=== PATIENT | female | born 1985 | race Caucasian/White ===

== ENCOUNTER 2016-07-19 05:33 | Emergency (ER) | payer OTHER ==
[2016-07-19] MEDS ORDERED: ONDANSETRON 4 MG/2 ML VIAL IVP STA ×2 (05:48→08:32)
[2016-07-19] MEDS ORDERED: DICYCLOMINE 10 MG/ML 2 ML AMP IM STA (05:48)
[2016-07-19] MEDS ORDERED: SODIUM CHLORIDE 0.9% 1,000 ML IV STA ×3 (05:48→08:32)
[2016-07-19] MEDS ORDERED: FAMOTIDINE 20 MG/2 ML VIAL IV STA (05:49)
--- NOTE | 2016-07-19 05:51 | ED ---
General Adult HPI - General Source: patient, RN notes reviewed Mode of arrival: ambulatory Limitations: no limitations, language barrier <Mauricio Rosenberg - Last Filed: 07/19/16 05:49> <Raheem Haynes - Last Filed: 07/19/16 09:52> - General Chief complaint: Nausea/Vomiting/Diarrhea Stated complaint: Vomiting Time Seen by Provider: 07/19/16 05:43 - History of Present Illness Initial comments: Patient is a pleasant 30-year-old female presenting to the emergency department complaining of nausea vomiting diarrhea. Onset was around 11 or 12. Patient has vomited multiple times and diarrhea multiple times. Patient has cramping of her abdomen. Patient has chills however is unclear whether or not she has a fever. Patient denies possible and states she is breast-feeding. Patient warned of medication be provided to her with breast-feeding. No history of chronic abdominal problems. Symptoms are persistent. (Mauricio Rosenberg) - Related Data Home Medications Medication Instructions Recorded Confirmed No Known Home Medications [No 07/19/16 07/19/16 Known Home Medications] Allergies Allergy/AdvReac Type Severity Reaction Status Date / Time No Known Allergies Allergy Verified 07/19/16 07:48 Review of Systems ROS Other: All systems not noted in ROS Statement are negative. Constitutional: Reports: chills Eyes: Denies: eye pain ENT: Denies: ear pain Respiratory: Denies: cough Cardiovascular: Denies: chest pain Endocrine: Denies: fatigue Gastrointestinal: Reports: abdominal pain, nausea, vomiting, diarrhea Genitourinary: Denies: dysuria Musculoskeletal: Denies: back pain Skin: Denies: rash Neurological: Denies: weakness <Mauricio Rosenberg - Last Filed: 07/19/16 05:49> ROS Other: All systems not noted in ROS Statement are negative. <Raheem Haynes - Last Filed: 07/19/16 09:52> ROS Statement: Those systems with pertinent positive or pertinent negative responses have been documented in the HPI. Past Medical History Past Medical History: No Reported History Additional Past Medical History / Comment(s): History of polycystic ovarian disease History of Any Multi-Drug Resistant Organisms: None Reported Past Surgical History: Section Past Anesthesia/Blood Transfusion Reactions: No Reported Reaction Past Psychological History: Depression Additional Psychological History / Comment(s): father october 2015 Smoking Status: Never smoker Past Alcohol Use History: None Reported Past Drug Use History: None Reported - Past Family History Father Family Medical History: Cancer, Diabetes Mellitus, Hypertension Mother Family Medical History: Diabetes Mellitus <Mauricio Rosenberg - Last Filed: 07/19/16 05:49> General Exam Limitations: no limitations, language barrier General appearance: alert, in no apparent distress Head exam: Present: atraumatic Eye exam: Present: normal appearance, PERRL ENT exam: Present: normal oropharynx Neck exam: Present: normal inspection Respiratory exam: Present: normal lung sounds bilaterally Cardiovascular Exam: Present: regular rate, normal rhythm GI/Abdominal exam: Present: soft, tenderness (Mild diffuse tenderness), normal bowel sounds. Absent: distended, guarding, rebound, rigid Extremities exam: Present: normal inspection Neurological exam: Present: alert Psychiatric exam: Present: normal affect, normal mood Skin exam: Absent: rash <Mauricio Rosenberg - Last Filed: 07/19/16 05:49> Course <Mauricio Rosenberg - Last Filed: 07/19/16 05:49> <Raheem Haynes - Last Filed: 07/19/16 09:52> Vital Signs 07/19/16 07/19/16 07/19/16 05:34 07:08 08:32 Temperature 98.5 F Pulse Rate 77 98 88 Respiratory 20 20 18 Rate Blood Pressure 97/66 95/58 94/53 O2 Sat by Pulse 97 98 100 Oximetry - Reevaluation(s) Reevaluation #1: 07/19/16 09:50 Patient was reevaluated several occasions patient is feeling much improved this time will be discharged home the presentation is consistent with gastroenteritis and dehydration. (Raheem Haynes) Medical Decision Making - Lab Data Result diagrams: 07/19/16 06:42 07/19/16 06:42 <Raheem Haynes - Last Filed: 07/19/16 09:52> - Lab Data Lab Results 07/19/16 07/19/16 07/19/16 Range/Units 06:42 06:42 08:25 WBC 11.4 H (3.8-10.6) k/uL RBC 4.89 (3.80-5.40) m/uL Hgb 14.6 (11.4-16.0) gm/dL Hct 44.9 (34.0-46.0) % MCV 91.9 (80.0-100.0) fL MCH 29.9 (25.0-35.0) pg MCHC 32.5 (31.0-37.0) g/dL RDW 12.1 (11.5-15.5) % Plt Count 231 (150-450) k/uL Neutrophils % 93 % Lymphocytes % 2 % Monocytes % 4 % Eosinophils % 1 % Basophils % 0 % Neutrophils # 10.7 H (1.3-7.7) k/uL Lymphocytes # 0.2 L (1.0-4.8) k/uL Monocytes # 0.4 (0-1.0) k/uL Eosinophils # 0.1 (0-0.7) k/uL Basophils # 0.0 (0-0.2) k/uL Sodium 145 (137-145) mmol/L Potassium 4.6 (3.5-5.1) mmol/L Chloride 105 (98-107) mmol/L Carbon Dioxide 24 (22-30) mmol/L Anion Gap 16 mmol/L BUN 22 H (7-17) mg/dL Creatinine 1.14 H (0.52-1.04) mg/dL Est GFR (MDRD) Af Amer >60 (>60 ml/min/1.73 sqM) Est GFR (MDRD) Non-Af 56 (>60 ml/min/1.73 sqM) Glucose 118 H (74-99) mg/dL Calcium 9.6 (8.4-10.2) mg/dL Total Bilirubin 0.9 (0.2-1.3) mg/dL AST 29 (14-36) U/L ALT 46 (9-52) U/L Alkaline Phosphatase 71 (38-126) U/L Total Protein 8.0 (6.3-8.2) g/dL Albumin 4.7 (3.5-5.0) g/dL Amylase <30 L (30-110) U/L Lipase 29 (23-300) U/L HCG, Qual Not Detected Urine Color Yellow Urine Appearance Cloudy H (Clear) Urine pH 5.5 (5.0-8.0) Ur Specific [place] 1.027 (1.001-1.035) Urine Protein 1+ H (Negative) Urine Glucose (UA) Negative (Negative) Urine Ketones Trace H (Negative) Urine Blood Small H (Negative) Urine Nitrate Negative (Negative) Urine Bilirubin Negative (Negative) Urine Urobilinogen <2.0 (<2.0) mg/dL Ur Leukocyte Esterase Small H (Negative) Urine RBC 6 H (0-5) /hpf Urine WBC 4 (0-5) /hpf Ur Squamous Epith Cells 8 H (0-4) /hpf Urine Bacteria Rare H (None) /hpf Hyaline Casts 20 H (0-2) /lpf Urine Mucus Moderate H (None) /hpf Disposition <Mauricio Rosenberg - Last Filed: 07/19/16 05:49> <Raheem Haynes - Last Filed: 07/19/16 09:52> Clinical Impression: Dehydration, Gastroenteritis Disposition: HOME SELF-CARE Condition: Good Instructions: Acute Nausea and Vomiting (ED), Acute Diarrhea (ED), Dehydration (ED) Additional Instructions: Drink plenty of liquids, Tylenol for pain
[2016-07-19 06:59] LABS: Basophils % (A) 0 %; CH 31.1; CHCM 33.9; Eosinophils # (A) 0.1 k/uL (0-0.7); Eosinophils % (A) 1 %; HCT 44.9 % (34.0-46.0); HDW 2.79; HGB 14.6 gm/dL (11.4-16.0); Luc # (Auto) 0.03; Luc % (Auto) 0; Lymphocytes # (A) 0.2 k/uL (1.0-4.8); Lymphocytes % (A) 2 %; MCH 29.9 pg (25.0-35.0); MCHC 32.5 g/dL (31.0-37.0); MCV 91.9 fL (80.0-100.0); Mean Platelet Volume 6.9; Monocytes # (A) 0.4 k/uL (0-1.0); Monocytes % (A) 4 %; Neutrophils # (A) 10.7 k/uL (1.3-7.7); Neutrophils % (A) 93 %; RBC 4.89 m/uL (3.80-5.40); RDW 12.1 % (11.5-15.5); WBC 11.4 k/uL (3.8-10.6); WBC (Perox) 11.88
[2016-07-19 07:13] LABS: HCG,Qualitative Serum Not Detected
[2016-07-19 07:16] LABS: ALT 46 U/L (9-52); AST 29 U/L (14-36); Alkaline Phosphatase 71 U/L (38-126); Amylase <30 U/L (30-110); Anion Gap 16 mmol/L; Blood Urea Nitrogen 22 mg/dL (7-17); Calcium 9.6 mg/dL (8.4-10.2); Carbon Dioxide 24 mmol/L (22-30); Chloride 105 mmol/L (98-107); Glucose 118 mg/dL (74-99); Non-African American GFR(MDRD) 56 (>60 ml/min/1.73 sqM); Potassium 4.6 mmol/L (3.5-5.1); Sodium 145 mmol/L (137-145); Total Bilirubin 0.9 mg/dL (0.2-1.3)
--- NOTE | 2016-07-19 07:23 | XR ---
EXAMINATION TYPE: XR KUB DATE OF EXAM: 07/19/2016 6:21 AM COMPARISON: NONE HISTORY: Pain TECHNIQUE: Single supine KUB image of the abdomen is obtained FINDINGS: Small bowel demonstrates no evidence for dilatation or air fluid levels. Gas and fecal material is seen in non-distended colon. No convincing evidence for pneumoperitoneum. No unusual calcifications. The lung bases are clear. The osseous structures are intact. IMPRESSION: 1. Overall nonobstructive bowel gas pattern.
[2016-07-19 08:34] VITALS: RESP 18
[2016-07-19 08:45] LABS: Appearance,Urine Cloudy (Clear); Bacteria,Urine Rare /hpf; Bilirubin,Urine Negative (Negative); Glucose,Urine (UA) Negative (Negative); Ketones,Urine Trace (Negative); Leukocyte Esterase,Urine Small (Negative); Mucus,Urine Moderate /hpf; Nitrite,Urine Negative (Negative); PH, Urine 5.5 (5.0-8.0); Particle Count 20488; Protein,Urine 1+ (Negative); RBC,Urine 6 /hpf (0-5); Specific Gravity,Urine 1.027 (1.001-1.035); Squamous Epithelial Cell,Urine 8 /hpf (0-4); UA Billing (MACRO vs. MICRO) MICRO; Urobilinogen,Urine <2.0 mg/dL (<2.0); WBC,Urine 4 /hpf (0-5)
[2016-07-19] MEDS ORDERED: ACETAMINOPHEN IV (For NPO) 1,000 MG in SALINE 1 100ML.BAG IVPB STA (09:01)
[2016-07-19 10:13] VITALS: BP 108/67; PULSE 90; TEMP 98.9
== END 2016-07-19 10:13 | disposition home or self-care (01) ==
LOC: EC 05:33
DX: K52.9 Noninfective gastroenteritis and colitis, unspecified (principal); E86.0 Dehydration
CPT/HCPCS: 36415; 80053; 82150; 83690; 85025; 81001; 84703; 74000; 99284; 96374; 96375 ×2; 96376; 96361 ×4; 96372; J0500; J2405; J0131

== ENCOUNTER 2019-04-24 14:35 | Outpatient (CLI) | payer OTHER ==
[2019-04-24 15:10] LABS: Appearance,Urine Cloudy (Clear); Bacteria,Urine Rare /hpf; Bilirubin,Urine Negative (Negative); Blood,Urine Negative (Negative); Color,Urine Light Yellow; Glucose,Urine (UA) Negative (Negative); Ketones,Urine Negative (Negative); Leukocyte Esterase,Urine Small (Negative); Nitrite,Urine Negative (Negative); Protein,Urine Negative (Negative); RBC,Urine 3 /hpf (0-5); Specific Gravity,Urine 1.003 (1.001-1.035); Squamous Epithelial Cell,Urine 4 /hpf (0-4); Urobilinogen,Urine <2.0 mg/dL (<2.0); WBC,Urine 5 /hpf (0-5)
[2019-04-24 16:42] VITALS: BP 112/70; RESP 16; TEMP 98.1
--- NOTE | 2019-04-24 19:29 | P.MSEPDOC ---
Presenting Problems - Arrival Data Date of Arrival on Unit: 04/24/19 Time of Arrival on Unit: 14:35 Mode of Transport: Ambulatory - Complaint OB-Reason for Admission/Chief Complaint: Other Medical History - Information : 4 Para: 2 Term: 1 : 1 Abortions: Spontaneous or Elective: 1 Number of Living Children: 2 - Gestational Age Gestational Age by SPARKLE (wks/days): 29 Weeks and 4 Days - History Complications: Prior Review of Systems - Review of Systems Constitutional: No problems Breast: No problems ENT: No problems Cardiovascular: No problems Respiratory: No problems Gastrointestinal: No problems Genitourinary: No problems Musculoskeletal: No problems Neurological: No problems Skin: No problems Vital Signs - Temperature Temperature: 98.1 F Temperature Source: Oral - Respirations Respiratory Rate: 16 Oxygen Delivery Method: Room Air - Blood Pressure Right Arm Supine Blood Pressure: 112/70 Blood Pressure Mean: 84 Blood Pressure Source: Automatic Cuff Medical Screen Scoring (Pre) - Cervical Exam Dilation: 1-3 cm = 1 Membranes: Intact - Uterine Contractions Frequency: N/A Duration: N/A Intensity: N/A - Maternal Vital Signs Maternal Temperature: N/A Maternal Blood Pressure: N/A Signs of Preeclampsia: N/A Maternal Respirations: N/A - Maternal Trauma Maternal Trauma: N/A - Assessment - Baby A Heart Rate - NICHD Category: Category I (Normal) = 0 NST: Reactive Position: N/A Station: N/A - Total Score - Baby A Total Score - Baby A: 1 - Total Score - Baby B Total Score - Baby B: 1 - Total Score - Baby C Total Score - Baby C: 1 - Level of Risk - Baby A Level of Risk - Baby A: Low (0-5) - Level of Risk - Baby B Level of Risk - Baby B: Low (0-5) - Level of Risk - Baby C Level of Risk - Baby C: Low (0-5) Physician Notification (Pre) - Physician Notified Physician Notified Date: 04/24/19 Physician Notified Time: 16:10 New Order Received: Yes Disposition - Disposition OB Disposition: Discharge to home Discharge Date: 04/24/19 Discharge Time: 16:13 I agree with the RN Medical Screening Exam: Yes Risk & Benefit of care provided described in d/c instruction: Yes Diagnosis: FALSE LABOR BEFORE 37 COMPLETED WEEKS OF GEST, THIRD TRI
== END 2019-04-24 16:13 | disposition home or self-care (01) ==
LOC: FBPOP 14:35
PROVIDERS: ATTEND Obstetrics & Gynecology
DX: O47.03 False labor before 37 completed weeks of gestation, third trimester (principal); Z3A.29 29 weeks gestation of pregnancy
CPT/HCPCS: 59025; 82731; 81001; G0463; 99213

== ENCOUNTER 2019-05-13 11:05 | Outpatient (CLI) | payer OTHER ==
[2019-05-13] MEDS ORDERED: BETAMET ACET-BETAMETH SOD PHOS 6 MG/ML VIAL IM SCH (11:15)
[2019-05-13] MEDS ORDERED: INFLUENZA VACCINE (6 MOS+) 60 MCG/0.5 ML SYRINGE IM ONE (11:18)
== END 2019-05-13 11:52 | disposition home or self-care (01) ==
LOC: FBPOP 11:05
PROVIDERS: ATTEND Obstetrics & Gynecology
DX: O60.03 Preterm labor without delivery, third trimester (principal); Z3A.33 33 weeks gestation of pregnancy
CPT/HCPCS: 59025; 96372; 90686; G0463; G0008; J0702; 99214

== ENCOUNTER 2019-05-14 11:22 | Outpatient (CLI) | payer OTHER ==
[2019-05-14] MEDS ORDERED: BETAMET ACET-BETAMETH SOD PHOS 6 MG/ML VIAL IM SCH (11:45)
== END 2019-05-14 12:00 | disposition home or self-care (01) ==
LOC: FBPOP 11:22
PROVIDERS: ATTEND Obstetrics & Gynecology
DX: O60.03 Preterm labor without delivery, third trimester (principal); Z3A.32 32 weeks gestation of pregnancy
CPT/HCPCS: 59025; 96372; G0463; J0702; 99213

== ENCOUNTER 2019-05-23 19:25 | Outpatient (CLI) | payer OTHER ==
[2019-05-23 20:28] VITALS: BP 114/73; PULSE 111; RESP 18; TEMP 98.1
--- NOTE | 2019-05-27 13:15 | P.MSEPDOC ---
Presenting Problems - Arrival Data Date of Arrival on Unit: 05/23/19 Time of Arrival on Unit: 19:25 Mode of Transport: Ambulatory - Complaint OB-Reason for Admission/Chief Complaint: Possible Onset of Labor, Pain Medical History - Information : 4 Para: 2 Term: 1 : 1 Abortions: Spontaneous or Elective: 1 Number of Living Children: 2 - Gestational Age Gestational Age by SPARKLE (wks/days): 33 Weeks and 5 Days Review of Systems - Review of Systems Constitutional: No problems Breast: No problems ENT: No problems Cardiovascular: No problems Respiratory: No problems Gastrointestinal: No problems Genitourinary: No problems Musculoskeletal: No problems Neurological: No problems Skin: No problems Vital Signs - Temperature Temperature: 98.1 F Temperature Source: Temporal Artery Scan - Pulse Right Pulse Rate: 111 Pulse Assessment Method: Pulse Oximetry - Respirations Respiratory Rate: 18 Oxygen Delivery Method: Room Air O2 Sat by Pulse Oximetry: 97 - Blood Pressure Right Arm Blood Pressure: 114/73 Blood Pressure Mean: 86 Blood Pressure Source: Automatic Cuff Medical Screen Scoring (Pre) - Cervical Exam Dilation: 1-3 cm = 1 Effacement: Exam Deferred Membranes: Intact - Uterine Contractions Frequency: N/A Duration: N/A Intensity: N/A - Maternal Vital Signs Maternal Temperature: N/A Maternal Blood Pressure: N/A Signs of Preeclampsia: N/A Maternal Respirations: N/A - Maternal Trauma Maternal Trauma: N/A - Assessment - Baby A Baseline FHR: 150 Heart Rate - NICHD Category: Category I (Normal) = 0 NST: Reactive Position: N/A Station: N/A - Total Score - Baby A Total Score - Baby A: 1 - Total Score - Baby B Total Score - Baby B: 1 - Total Score - Baby C Total Score - Baby C: 1 - Level of Risk - Baby A Level of Risk - Baby A: Low (0-5) - Level of Risk - Baby B Level of Risk - Baby B: Low (0-5) - Level of Risk - Baby C Level of Risk - Baby C: Low (0-5) Physician Notification (Pre) - Physician Notified Physician Notified Date: 05/23/19 Physician Notified Time: 20:21 New Order Received: Yes (D/C home with follow up instructions.) Medical Screen Scoring (Post) - Cervical Exam Dilation: 1-3 cm = 1 Effacement: Exam Deferred Membranes: Intact - Uterine Contractions Frequency: N/A Duration: N/A Intensity: N/A - Maternal Vital Signs Maternal Temperature: N/A Maternal Blood Pressure: N/A Signs of Preeclampsia: N/A Maternal Respirations: N/A - Pain Assessment Pain Location and Character: Pelvic Pain Scale Used: Numeric (1 - 10) Pain Intensity: 3 Pain Management Goal: 0 Pain Description: *Acute, Pressure Pain Radiation Location: none Pain Frequency: Frequent Pain Duration Units: Hours Pain Behavior: Vocalization Pain Aggravating Factors: Activity Non-Pharmacological Interventions: Inactivity, Relaxation Technique - Maternal Trauma Maternal Trauma: N/A - Assessment - Baby A Heart Rate: 150 Heart Rate - NICHD Category: Category I (Normal) = 0 NST: Reactive Position: N/A Station: N/A - Total Score Total Score - Baby A: 1 Total Score - Baby B: 1 Total Score - Baby C: 1 - Post Treatment Level of Risk Post Treatment Level of Risk - Baby A: Low (0-5) Post Treatment Level of Risk - Baby B: Low (0-5) Post Treatment Level of Risk - Baby C: Low (0-5) Physician Notification (Post) - Physician Notified Physician Notified Date: 05/23/19 Physician Notified Time: 20:21 Physician/Practitioner Notified:: Katerina Spoke With: Katerina New Order Received: Yes (D/C home with follow up instructions.) Disposition - Disposition OB Disposition: Discharge to home Discharge Date: 05/23/19 Discharge Time: 20:21 I agree with the RN Medical Screening Exam: Yes Risk & Benefit of care provided described in d/c instruction: Yes Diagnosis: FALSE LABOR BEFORE 37 COMPLETED WEEKS OF GEST, THIRD TRI
== END 2019-05-23 20:29 | disposition home or self-care (01) ==
LOC: FBPOP 19:25
PROVIDERS: ATTEND Obstetrics & Gynecology
DX: O47.03 False labor before 37 completed weeks of gestation, third trimester (principal); Z3A.33 33 weeks gestation of pregnancy
CPT/HCPCS: 59025; G0463; 99213

== ENCOUNTER 2019-06-04 21:50 | Outpatient (CLI) | payer OTHER ==
[2019-06-04 23:19] VITALS: BP 113/70; PULSE 107; RESP 16; TEMP 98
--- NOTE | 2019-06-05 07:10 | P.MSEPDOC ---
Presenting Problems - Arrival Data Date of Arrival on Unit: 06/04/19 Time of Arrival on Unit: 22:50 Mode of Transport: Ambulatory - Complaint OB-Reason for Admission/Chief Complaint: Pain Medical History - Information : 4 Para: 2 Term: 1 : 1 Abortions: Spontaneous or Elective: 1 Number of Living Children: 2 - Gestational Age Gestational Age by SPARKLE (wks/days): 35 Weeks and 3 Days - History Complications: Prior Comment: 35 week delivery Review of Systems - Review of Systems Constitutional: No problems Breast: No problems ENT: No problems Cardiovascular: No problems Respiratory: No problems Gastrointestinal: No problems Genitourinary: No problems Musculoskeletal: No problems Neurological: No problems Skin: No problems Vital Signs - Temperature Temperature: 98 F Temperature Source: Tympanic - Pulse Right Brachial Pulse Rate: 107 Pulse Assessment Method: Automatic Cuff - Respirations Respiratory Rate: 16 Oxygen Delivery Method: Room Air O2 Sat by Pulse Oximetry: 96 - Blood Pressure Right Arm Blood Pressure: 113/70 Blood Pressure Mean: 84 Blood Pressure Source: Automatic Cuff Medical Screen Scoring (Pre) - Cervical Exam Dilation: 4-7 cm = 2 Effacement: More than 50% = 2 Membranes: Intact - Uterine Contractions Frequency: > 5 minutes apart = 1 Duration: > 40 seconds = 2 Intensity: N/A - Maternal Vital Signs Maternal Temperature: N/A Maternal Blood Pressure: N/A Signs of Preeclampsia: N/A Maternal Respirations: N/A - Maternal Trauma Maternal Trauma: N/A - Assessment - Baby A Baseline FHR: 145 Heart Rate - NICHD Category: Category I (Normal) = 0 NST: Reactive Position: N/A Station: N/A - Total Score - Baby A Total Score - Baby A: 7 - Total Score - Baby B Total Score - Baby B: 7 - Total Score - Baby C Total Score - Baby C: 7 - Level of Risk - Baby A Level of Risk - Baby A: Medium (6-9) - Level of Risk - Baby B Level of Risk - Baby B: Medium (6-9) - Level of Risk - Baby C Level of Risk - Baby C: Medium (6-9) Physician Notification (Pre) - Physician Notified Physician Notified Date: 06/04/19 Physician Notified Time: 23:08 - Notification Comment Comment: Reported no cervical change after one hour, pt 4/70/-2 same as her appointment Monday, had steroids, follow up scheduled 06/10/19. Disposition - Disposition OB Disposition: Discharge to home, Written follow up instructions reviewed Discharge Date: 06/04/19 Discharge Time: 23:10 I agree with the RN Medical Screening Exam: Yes Risk & Benefit of care provided described in d/c instruction: Yes Diagnosis: FALSE LABOR BEFORE 37 COMPLETED WEEKS OF GEST, THIRD TRI
== END 2019-06-04 23:10 | disposition home or self-care (01) ==
LOC: FBPOP 21:50
PROVIDERS: ATTEND Obstetrics & Gynecology
DX: O47.03 False labor before 37 completed weeks of gestation, third trimester (principal); Z3A.35 35 weeks gestation of pregnancy
CPT/HCPCS: 59025; G0463; 99213

== ENCOUNTER 2019-06-07 20:24 | Outpatient (CLI) | payer OTHER ==
[2019-06-07 22:27] VITALS: BP 118/69; PULSE 95; RESP 18; TEMP 99
--- NOTE | 2019-06-07 23:18 | P.MSEPDOC ---
Presenting Problems - Arrival Data Date of Arrival on Unit: 06/07/19 Time of Arrival on Unit: 20:35 Mode of Transport: Ambulatory - Complaint OB-Reason for Admission/Chief Complaint: Possible Onset of Labor Medical History - Information : 4 Para: 2 Term: 1 : 1 Abortions: Spontaneous or Elective: 1 Number of Living Children: 2 - Gestational Age Gestational Age by SPARKLE (wks/days): 35 Weeks and 6 Days Review of Systems - Review of Systems Constitutional: No problems Breast: No problems ENT: No problems Cardiovascular: No problems Respiratory: No problems Gastrointestinal: No problems Genitourinary: No problems Musculoskeletal: No problems Neurological: No problems Skin: No problems Vital Signs - Temperature Temperature: 99.0 F Temperature Source: Temporal Artery Scan - Pulse Right Pulse Rate: 95 Pulse Assessment Method: Automatic Cuff - Respirations Respiratory Rate: 18 Oxygen Delivery Method: Room Air - Blood Pressure Right Arm Blood Pressure: 118/69 Blood Pressure Mean: 85 Blood Pressure Source: Automatic Cuff Medical Screen Scoring (Pre) - Cervical Exam Dilation: 4-7 cm = 2 Effacement: Exam Deferred Membranes: Intact - Uterine Contractions Frequency: > 5 minutes apart = 1 Duration: N/A Intensity: N/A - Maternal Vital Signs Maternal Temperature: N/A Maternal Blood Pressure: N/A Signs of Preeclampsia: N/A Maternal Respirations: N/A - Maternal Trauma Maternal Trauma: N/A - Assessment - Baby A Baseline FHR: 145 Heart Rate - NICHD Category: Category I (Normal) = 0 NST: Reactive Position: N/A Station: N/A - Total Score - Baby A Total Score - Baby A: 3 - Total Score - Baby B Total Score - Baby B: 3 - Total Score - Baby C Total Score - Baby C: 3 - Level of Risk - Baby A Level of Risk - Baby A: Low (0-5) - Level of Risk - Baby B Level of Risk - Baby B: Low (0-5) - Level of Risk - Baby C Level of Risk - Baby C: Low (0-5) Physician Notification (Pre) - Physician Notified Physician Notified Date: 06/07/19 Physician Notified Time: 20:50 New Order Received: Yes (If no cervical change, discharge home with follow up instructions.) Medical Screen Scoring (Post) - Cervical Exam Dilation: 4-7 cm = 2 Effacement: Exam Deferred Membranes: Intact - Uterine Contractions Frequency: > 5 minutes apart = 1 Duration: N/A Intensity: N/A - Maternal Vital Signs Maternal Temperature: N/A Signs of Preeclampsia: N/A, Headache = 1 Maternal Respirations: N/A - Pain Assessment Pain Location and Character: Abdomen Pain Scale Used: Numeric (1 - 10) Pain Intensity: 4 Pain Management Goal: 0 Pain Description: *Acute, Cramping Pain Frequency: Occasional Pain Behavior: Vocalization - Maternal Trauma Maternal Trauma: N/A - Assessment - Baby A Heart Rate: 145 Heart Rate - NICHD Category: Category I (Normal) = 0 NST: Reactive Position: N/A Station: N/A - Total Score Total Score - Baby A: 4 Total Score - Baby B: 4 Total Score - Baby C: 4 - Post Treatment Level of Risk Post Treatment Level of Risk - Baby A: Low (0-5) Post Treatment Level of Risk - Baby B: Low (0-5) Post Treatment Level of Risk - Baby C: Low (0-5) Physician Notification (Post) - Physician Notified Physician Notified Date: 06/07/19 Physician Notified Time: 20:50 Physician/Practitioner Notified:: Isha Spoke With: Isha Kaiser Order Received: Yes (discharge with follow up instructions.) Disposition - Disposition OB Disposition: Discharge to home Discharge Date: 06/07/19 Discharge Time: 21:55 I agree with the RN Medical Screening Exam: Yes Risk & Benefit of care provided described in d/c instruction: Yes Diagnosis: FALSE LABOR BEFORE 37 COMPLETED WEEKS OF GEST, THIRD TRI
== END 2019-06-07 21:55 | disposition home or self-care (01) ==
LOC: FBPOP 20:24
PROVIDERS: ATTEND Obstetrics & Gynecology
DX: O47.03 False labor before 37 completed weeks of gestation, third trimester (principal); Z3A.35 35 weeks gestation of pregnancy
CPT/HCPCS: 59025; G0463; 99213

== ENCOUNTER 2019-06-15 09:20 | Inpatient (IN) | payer OTHER ==
[2019-06-15] MEDS ORDERED: CARBOPROST TROMETHAMINE 250 MCG/ML 1 ML AMP IM PRN (10:51)
[2019-06-15] MEDS ORDERED: LIDOCAINE 0.5% (PF) 5 MG/ML (50 ML SDV) SQ PRN (10:51)
[2019-06-15] MEDS ORDERED: METHYLERGONOVINE 0.2 MG/ML 1 ML AMP IM PRN (10:51)
[2019-06-15] MEDS ORDERED: TERBUTALINE 1 MG/ML VIAL SQ PRN (10:51)
[2019-06-15] MEDS ORDERED: OXYTOCIN 10 UNIT/ML 1 ML VIAL IM PRN (10:51)
[2019-06-15] MEDS: LACTATED RINGERS 1,000 ML IV SCH ×2 (11:17→15:43)
[2019-06-15 11:42] LABS: Basophils # (A) 0.1 k/uL (0-0.2); Basophils % (A) 1 %; Eosinophils # (A) 0.2 k/uL (0-0.7); Eosinophils % (A) 3 %; HCT 34.3 % (34.0-46.0); HGB 11.6 gm/dL (11.4-16.0); Lymphocytes # (A) 1.1 k/uL (1.0-4.8); Lymphocytes % (A) 15 %; MCH 31.7 pg (25.0-35.0); MCHC 33.7 g/dL (31.0-37.0); MCV 94.2 fL (80.0-100.0); Mean Platelet Volume 8.2; Monocytes # (A) 0.4 k/uL (0-1.0); Monocytes % (A) 6 %; Neutrophils # (A) 5.6 k/uL (1.3-7.7); Neutrophils % (A) 74 %; Platelet Count 180 k/uL (150-450); RBC 3.64 m/uL (3.80-5.40); RDW 13.9 % (11.5-15.5); WBC 7.5 k/uL (3.8-10.6)
[2019-06-15] MEDS ORDERED: fentaNYL (PF) 50 MCG/ML 5 ML AMP ONE (15:05)
[2019-06-15] MEDS ORDERED: ROPIVACAINE 5MG/ML 20ML VIAL ONE (15:05)
[2019-06-15] MEDS ORDERED: SODIUM CHLORIDE 0.9% 100 ML BAG ONE (15:05)
[2019-06-15] MEDS ORDERED: ROPIVACAINE 100 MG, fentaNYL (PF) 200 MCG in SODIUM CHLORIDE 0.9% 76 ML EPIDURAL ONE (15:46)
[2019-06-15] MEDS ORDERED: diphenhydrAMINE 50 MG/ML 1 ML VIAL IVP PRN ×2 (18:26)
[2019-06-15] MEDS ORDERED: HYDROCORTISONE 2.5% RECTAL CREAM 30 GM TUBE RECTAL PRN (18:26)
[2019-06-15] MEDS ORDERED: WITCH HAZEL 1 EACH MED..PAD TOPICAL PRN (18:26)
[2019-06-15] MEDS ORDERED: ACETAMINOPHEN TAB 325 MG TAB PO PRN (18:26)
[2019-06-15] MEDS ORDERED: HYDROcodone/APAP 7.5-325MG 1 EACH TAB PO PRN (18:26)
[2019-06-15] MEDS ORDERED: BENZOCAINE/MENTHOL SPRAY 1 GM/SPRAY AEROSOL TOPICAL PRN (18:26)
[2019-06-15] MEDS ORDERED: diphenhydrAMINE 50 MG CAP PO PRN (18:26)
[2019-06-15] MEDS ORDERED: SIMETHICONE 80 MG CHEWABLE PO PRN (18:26)
[2019-06-15] MEDS ORDERED: diphenhydrAMINE 25 MG CAP PO PRN (18:26)
[2019-06-15] MEDS ORDERED: ZOLPIDEM 5 MG TAB PO PRN (18:26)
[2019-06-15] MEDS ORDERED: LANOLIN CREAM 5 GM TUBE TOPICAL PRN (18:26)
[2019-06-15] MEDS ORDERED: IBUPROFEN 600 MG TAB PO PRN (18:26)
[2019-06-15] MEDS ORDERED: OXYTOCIN 20 UNITS/1000 ML NS 1,000 ML IV SCH (18:30)
--- NOTE | 2019-06-15 18:30 | P.HPOB ---
History of Present Illness H&P Date: 06/15/19 Chief Complaint: Intrauterine term: Advanced dilatation Patient is a 33-year-old with 1 prior section and a prior successful . She called this morning and explained that she was unable to walk and she was having significant severe pain in her pelvis and due to her prior exam per her of her being dilated to 5 cm she was sent to [facility] for full evaluation. In labor and delivery was are 5 that she had cervical dilatation of 5 cm to 5-1/2 cm with irregular contractions. However during the observational period she had several variable decelerations that were somewhat concerning due to the fact that she was not ignacio having other signs or symptoms of labor and with her history of prior vaginal after section a decision to move forward with labor was made. Artificial rupture membranes was performed and clear fluid was noted. She did also have some polyhydramnios [place] on the amount of fluid that came out. Her course otherwise had been generally unremarkable and was feeling well other than her advanced dilatation. She had a similar episode with her last and delivered that baby at 35 weeks. She denies any other questions or concerns and a category 1 tracing is noted. We'll plan Pitocin augmentation of labor and she plans she is noted epidural for analgesia. Past Medical History Past Medical History: No Reported History Additional Past Medical History / Comment(s): History of polycystic ovarian disease History of Any Multi-Drug Resistant Organisms: None Reported Past Surgical History: Section Past Anesthesia/Blood Transfusion Reactions: No Reported Reaction Past Psychological History: Depression Additional Psychological History / Comment(s): father october 2015 Smoking Status: Never smoker Past Alcohol Use History: None Reported Past Drug Use History: None Reported - Past Family History Father Family Medical History: Cancer, Diabetes Mellitus, Hypertension Mother Family Medical History: Diabetes Mellitus Medications and Allergies Home Medications Medication Instructions Recorded Confirmed Type Pnv,Calcium 72/Iron/Folic Acid 1 each PO DAILY 04/24/19 06/15/19 History [ Plus Tablet] Allergies Allergy/AdvReac Type Severity Reaction Status Date / Time No Known Allergies Allergy Verified 06/15/19 09:41 Exam Osteopathic Statement: *. No significant issues noted on an osteopathic structural exam other than those noted in the History and Physical/Consult. Vital Signs Temp Pulse Resp BP Pulse Ox 06/15/19 09:34 98.1 F 108 H 17 126/74 96 06/15/19 09:24 98.1 F 108 H 17 126/74 97 Intake and Output 06/15/19 06/15/19 06/15/19 06:59 14:59 22:59 Other: # Voids 1 Weight 107.048 kg - OBG Physical Exam Breast: both: normal (no masses) Abdomen: bowel sounds normal, no diffuse tenderness, no bruit present, no guarding noted, no hepatomegaly, no splenomegaly, no mass Vulva: both: normal Vagina: normal moisture, no discharge Cervix: no lesion, no discharge Uterus: normal size, normal contour Adnexa: both: normal Anus/Rectum: normal perianal skin, no rectal mass, no hemorrhoids, heme negative Results Result Diagrams: 06/15/19 11:05 Abnormal Lab Results - Last 24 Hours (Table) 06/15/19 Range/Units 11:05 RBC 3.64 L (3.80-5.40) m/uL
--- NOTE | 2019-06-15 18:31 | P.PROBDLV ---
Vaginal Delivery Note - . Vaginal Delivery Note: Patient progressed complete and pushing with spontaneous vaginal delivery of a viable male over a third-degree perineal laceration. Delivery occurred from straight OT position. Once baby's head was delivered shoulders were easily delivered with lateral traction. Mouth nares were then bulb suctioned and baby was placed on mother's abdomen where the umbilical cord was pulsating for 30 seconds prior to clamping and cutting. Nursery personnel was present and assumed care. Once this was accomplished placenta was then delivered intact and Pitocin was added to the IV. Her degree perineal laceration was noted and easily repaired with 3-0 Vicryl following 1% Xylocaine for analgesia rectum was otherwise intact and external anal sphincter appeared intact as well. scores were 9 and 9 at one and 5 minutes respectively and the weight was 7 lbs. 14 oz. Both mother and baby are stable findings delivery.
[2019-06-16] MEDS: SENNOSIDES-DOCUSATE SODIUM 1 EACH TAB PO SCH ×2 (03:28→09:03)
[2019-06-16] MEDS: LACTATED RINGERS 1,000 ML IV SCH (03:39)
[2019-06-16 08:53] VITALS: RESP 17
--- NOTE | 2019-06-16 13:51 | P.DS ---
Providers Date of admission: 06/15/19 10:53 Expected date of discharge: 06/16/19 Attending physician: Lani Borges Primary care physician: Stated None Hospital Course: Patient is doing very well day 1. She is involuting, voiding and tolerating her diet. She voices no complaints and is requesting discharge home tonight. Vital signs are stable and she is afebrile. Heart regular, lungs clear, extremities without pain. Abdomen is soft uterus is firm and lochia is reported to be light. Assessment day 1. Plan discharged home follow up with Dr. Borges in 6 weeks. Patient Condition at Discharge: Good Plan - Discharge Summary New Discharge Prescriptions: No Action Pnv,Calcium 72/Iron/Folic Acid [ Plus Tablet] 1 each PO DAILY Discharge Medication List Pnv,Calcium 72/Iron/Folic Acid [ Plus Tablet] 1 each PO DAILY 04/24/19 [History] Follow up Appointment(s)/Referral(s): Lani Borges DO [Doctor of Osteopathic Medicine] - 6 Weeks Activity/Diet/Wound Care/Special Instructions: No heavy lifting, limit stairs and driving, and pelvic rest. If any high temperatures, heavy bleeding, or severe pain call my office. She is aware she is to use stool softeners of over the next few days as she did have a third- degree laceration. Discharge Disposition: HOME SELF-CARE
[2019-06-16 16:06] VITALS: BP 112/70; PULSE 90; TEMP 98.9
== END 2019-06-16 19:40 | disposition home or self-care (01) | DRG 768 ==
LOC: FBPOP 09:20 → 4FBP 10:53
PROVIDERS: ADMIT Obstetrics & Gynecology; ATTEND Obstetrics & Gynecology
PROC: 10E0XZZ Delivery of Products of Conception, External Approach (ICD-10-PCS; principal; 2019-06-15)
PROC: 0DQR0ZZ Repair Anal Sphincter, Open Approach (ICD-10-PCS; 2019-06-15)
PROC: 00HU33Z Insertion of Infusion Device into Spinal Canal, Percutaneous Approach (ICD-10-PCS; 2019-06-15)
PROC: 3E0R3BZ Introduction of Anesthetic Agent into Spinal Canal, Percutaneous Approach (ICD-10-PCS; 2019-06-15)
DX: O76 Abnormality in fetal heart rate and rhythm complicating labor and delivery (principal); Z37.0 Single live birth; O70.20 Third degree perineal laceration during delivery, unspecified; O40.3XX0 Polyhydramnios, third trimester, not applicable or unspecified; O34.219 Maternal care for unspecified type scar from previous cesarean delivery; Z86.59 Personal history of other mental and behavioral disorders; O99.284 Endocrine, nutritional and metabolic diseases complicating childbirth; E28.2 Polycystic ovarian syndrome; Z3A.37 37 weeks gestation of pregnancy; Z82.49 Family history of ischemic heart disease and other diseases of the circulatory system; Z83.3 Family history of diabetes mellitus; Z80.9 Family history of malignant neoplasm, unspecified
CPT/HCPCS: 85025; 86850; 86900; 86901

== ENCOUNTER 2023-01-29 12:20 | Emergency (ER) | payer OTHER ==
[2023-01-29 12:31] VITALS: TEMP 98.4
[2023-01-29] MEDS ORDERED: SODIUM CHLORIDE 0.9% 1,000 ML IV STA (12:48)
[2023-01-29] MEDS ORDERED: KETOROLAC 15 MG/ML 1 ML VIAL IVP STA (12:49)
[2023-01-29] MEDS ORDERED: DEXAMETHASONE SOD PHOSPHATE 10 MG/ML 1 ML VIAL IVP STA (12:49)
[2023-01-29 13:01] LABS: Basophils % (A) 0 %; Eosinophils # (A) 0.4 k/uL (0-0.7); Eosinophils % (A) 5 %; HCT 40.6 % (34.0-46.0); HGB 14.1 gm/dL (11.4-16.0); Lymphocytes # (A) 1.4 k/uL (1.0-4.8); Lymphocytes % (A) 17 %; MCH 31.6 pg (25.0-35.0); MCHC 34.8 g/dL (31.0-37.0); MCV 90.7 fL (80.0-100.0); Mean Platelet Volume 7.7; Monocytes # (A) 0.4 k/uL (0-1.0); Monocytes % (A) 5 %; Neutrophils # (A) 6.3 k/uL (1.3-7.7); Neutrophils % (A) 73 %; Platelet Count 281 k/uL (150-450); RBC 4.48 m/uL (3.80-5.40); RDW 12.5 % (11.5-15.5); WBC 8.6 k/uL (3.8-10.6)
[2023-01-29 13:23] LABS: African American GFR (CKD) >90 (>60 ml/min/1.73 sqM); Anion Gap 9 mmol/L; Blood Urea Nitrogen 7 mg/dL (7-17); Calcium 9.5 mg/dL (8.4-10.2); Carbon Dioxide 25 mmol/L (22-30); Chloride 104 mmol/L (98-107); Glucose 84 mg/dL (74-99); Non-African American GFR(CKD) >90 (>60 ml/min/1.73 sqM); Potassium 4.3 mmol/L (3.5-5.1); Sodium 138 mmol/L (137-145)
--- NOTE | 2023-01-29 13:28 | CT ---
EXAMINATION TYPE: CT facial bones wo con CT DLP: 446 mGycm, Automated exposure control for dose reduction was used. DATE OF EXAM: 01/29/2023 1:21 PM COMPARISON: None. CLINICAL INDICATION:Female, 37 years old with history of eval for left orbital vs periorbital celluli tis; PHH, Sinus infection vs. cellulitis versus periorbital cellulitis left TECHNIQUE: Multiple unenhanced axial CT images were obtained of the facial bones soft tissue and bone windows. Coronal, axial and sagittal reformatted images were also provided in soft tissue and bone windows and submitted for interpretation. FINDINGS: The left intraconal extraconal fat is within normal limits. Mild atrophy changes in the pre septal space. Moderate paranasal sinus disease involving the maxillary sinuses ethmoid air cells, and left frontal sinus. Opacification of the ostiomeatal units, frontonasal recesses and sphenoethmoidal recesses. No evidence of fracture. There is no evidence of fracture, or subluxation, dislocation.. T he temporal-mandibular joints appear symmetric. IMPRESSION: 1. Left Preseptal edema correlate for preseptal cellulitis. No evidence for orbital cellulitis. 2. Moderate to severe paranasal sinus disease.
--- NOTE | 2023-01-29 13:28 | ED ---
General Adult HPI - General Chief complaint: Headache Stated complaint: poss bells palsy Time Seen by Provider: 01/29/23 12:32 Source: patient, RN notes reviewed, old records reviewed Mode of arrival: ambulatory Limitations: no limitations - History of Present Illness Initial comments: Patient is a 37-year-old female who presents emergency Department complaining of facial pain and left-sided headache. Patient has been having sinus congestion and drainage for the last 4-5 days. Noticed that she was having increased fullness sensation over the left side of her face and swelling. Presented to urgent care for sinusitis there were concerns she may have Weinberg's palsy and sent her here for further evaluation. Patient does have swelling over the center face but no paralysis of the face. No sensory deficits. No other weakness or numbness. Patient is complaining of mild nausea, rhinorrhea, nasal congestion and cough. No fevers. No known sick contacts. Denies sore throat. Patient is not complaining of any blurry vision but is complaining of some pain along the upper eyelid where there is edema. No rash. Presents for further evaluation of this time. Denies any significant pain with movement of her eye except for yesterday she states when the sinus pressure above her left eye gets severe she does have some eye pain with movement but currently denies any. It is not persistent. - Related Data Home Medications Medication Instructions Recorded Confirmed Vit No.180/Iron/Folic 1 each PO DAILY 04/24/19 06/15/19 [ Plus Tablet] Previous Rx's Medication Instructions Recorded Amoxic-Pot Clav 875-125Mg 1 tab PO Q12HR 7 Days #14 tab 01/29/23 [Augmentin 875-125] clindamycin HCL 300 mg PO Q8HR 7 Days #21 cap 01/29/23 dexAMETHasone [Decadron] 4 mg PO ONCE 1 Days #1 tablet 01/29/23 Allergies Allergy/AdvReac Type Severity Reaction Status Date / Time No Known Allergies Allergy Verified 01/29/23 12:31 Review of Systems ROS Statement: Those systems with pertinent positive or pertinent negative responses have been documented in the HPI. Review of Systems: CONST: Denies fever EYES: Denies blurry vision ENT: Endorses rhinorrhea, sinus congestion and pain C/V: Denies Chest pain RESP: Denies shortness of breath GI: Denies abdominal pain : Denies dysuria SKIN: Denies rash. MSK: Denies joint pain. NEURO: Endorses headache ROS Other: All systems not noted in ROS Statement are negative. Past Medical History Past Medical History: No Reported History Additional Past Medical History / Comment(s): History of polycystic ovarian disease History of Any Multi-Drug Resistant Organisms: None Reported Past Surgical History: Section Past Anesthesia/Blood Transfusion Reactions: No Reported Reaction Past Psychological History: Depression Smoking Status: Never smoker Past Alcohol Use History: None Reported Past Drug Use History: None Reported - Past Family History Father Family Medical History: Cancer, Diabetes Mellitus, Hypertension Mother Family Medical History: Diabetes Mellitus General Exam - General Exam Comments Initial Comments: General: Appears in no acute distress. HEAD: Normal with no signs of head trauma. EYES: PERRLA, EOMI, conjunctiva normal, no discharge. Pupils are 3 mm and equal bilaterally. ENT: Hearing grossly intact, normal oropharynx. Frontal sinus tenderness to palpation. Some mild periorbital edema particularly over the superior left eyelid. No tenderness palpation of the Sinuses. RESPIRATORY: Clear breath sounds bilaterally. No wheezes, rales, or rhonchi. C/V: Regular rate and rhythm. S1 and S2 auscultated,peripheral pulses 2+ and intact throughout ABD: Abd is soft, nontender, nondistended EXT: Normal range of motion, no obvious deformity SKIN: No rashes or lesions observed on exposed skin. NEURO: Alert and oriented x 4. Cranial nerves II-XII intact. No focal sensory or strength deficits. GCS of 15. NIH of 0. Ambulates without difficulty.No facial paralysis. Limitations: no limitations Course Vital Signs 01/29/23 01/29/23 12:26 14:24 Temperature 98.4 F Pulse Rate 88 85 Respiratory 20 18 Rate Blood Pressure 146/80 136/86 O2 Sat by Pulse 99 100 Oximetry Medical Decision Making - Medical Decision Making Was pt. sent in by a medical professional or institution (, PA, CHEMICAL PACKAGER, urgent care, hospital, or halfway...) When possible be specific @ -Sent by urgent care to rule out Weinberg's palsy. Did you speak to anyone other than the patient for history (EMS, parent, family, police, friend...)? What history was obtained from this source @ -No Did you review nursing and triage notes (agree or disagree)? Why? @ -I reviewed and agree with nursing and triage notes Were old charts reviewed (outside hosp., previous admission, EMS record, old EKG, old radiological studies, urgent care reports/EKG's, halfway records)? Report findings @ -No old charts were reviewed Differential Diagnosis (chest pain, altered mental status, abdominal pain women, abdominal pain men, vaginal bleeding, weakness, fever, dyspnea, syncope, headache, dizziness, GI bleed, back pain, seizure, CVA, palpatations, mental health, musculoskeletal)? @ -Sinus infection, sinusitis, viral infection, pneumonia, periorbital jesse lulitis, orbital cellulitis. This list is not all inclusive. EKG interpreted by me (3pts min.). @ -None done X-rays interpreted by me (1pt min.). @ -Chest x-ray reveals no obvious acute cardio pulmonary process. CT interpreted by me (1pt min.). @ -CT of the facial bones reveals left preseptal cellulitis. No evidence of orbital cellulitis. Sinusitis also present. U/S interpreted by me (1pt. min.). @ -None done What testing was considered but not performed or refused? (CT, X-rays, U/S, labs)? Why? @ -None What meds were considered but not given or refused? Why? @ -None Did you discuss the management of the patient with other professionals (richie priest i.ePaul Baez, PA, CHEMICAL PACKAGER, lab, RT, psych nurse, licensed social worker, professor of communication and writing, teacher, commercial loan collection officer, case fitter)? Give summary @ -No Was smoking cessation discussed for >3mins.? @ -No Was critical care preformed (if so, how long)? @ -No Were there social determinants of health that impacted care today? How? (Homelessness, low income, unemployed, alcoholism, drug addiction, transportati on, low edu. Level, literacy, decrease access to med. care, fdc, rehab)? @ -No Was there de-escalation of care discussed even if they declined (Discuss DNR or withdrawal of care, Hospice)? DNR status @ -No What co-morbidities impacted this encounter? (DM, HTN, Smoking, COPD, CAD, Cancer, CVA, ARF, Chemo, Hep., AIDS, mental health diagnosis, sleep apnea, morbid obesity)? @ -None Was patient admitted / discharged? Hospital course, mention meds given and route, prescriptions, significant lab abnormalities, going to OR and other pertinent info. @ -Based on the patient's presentation and physical exam, I do not believe that she has Weinberg's palsy. She has no facial paralysis. There is concern for periorbital versus orbital cellulitis as well as a sinus infection. We'll obtain basic labs, viral swabs, chest x-ray, as well as CT face to assess for cellulitis. Patient was in agreement this plan. She'll be symptomatically treated with IV fluids, Toradol, as well as a dose of IV Decadron. Vital signs within acceptable limits. Imaging remarkable for findings suggestive of preseptal cellulitis as well as sinusitis. Labs are within acceptable limits. Discussed results of the patient. She'll be discharged home on antibiotics. She'll be given a dose of Augmentin as well as kanamycin prior to discharge as well as given a prescription. Strict return precautions discussed. She was in agreement with this plan. I will provide the patient with a prescription for clindamycin, Augmentin, one tablet Decadron. I instructed the patient to follow up with their PCP in the next 1-3 days. I explained that the patient should return to the emergency department if they experience any worsening symptoms. Strict return precautions were discussed with the patient. The patient expressed understanding of these instructions. I answered all questions that the patient had. The patient was discharged home in good condition with their prescriptions and follow up information. Undiagnosed new problem with uncertain prognosis? @ -No Drug Therapy requiring intensive monitoring for toxicity (Heparin, Nitro, Insulin, Cardizem)? @ -No Were any procedures done? @ -No Diagnosis/symptom? @ -Sinusitis, periorbital cellulitis of the left eye Acute, or Chronic, or Acute on Chronic? @ -Acute Uncomplicated (without systemic symptoms) or Complicated (systemic symptoms)? @ -Complicated Side effects of treatment? @ -none Exacerbation, Progression, or Severe Exacerbation] @ -no Poses a threat to life or bodily function? @ -no - Lab Data Result diagrams: 01/29/23 12:51 01/29/23 12:51 Lab Results 01/29/23 01/29/23 01/29/23 Range/Units 12:51 12:51 13:03 WBC 8.6 (3.8-10.6) k/uL RBC 4.48 (3.80-5.40) m/uL Hgb 14.1 (11.4-16.0) gm/dL Hct 40.6 (34.0-46.0) % MCV 90.7 (80.0-100.0) fL MCH 31.6 (25.0-35.0) pg MCHC 34.8 (31.0-37.0) g/dL RDW 12.5 (11.5-15.5) % Plt Count 281 (150-450) k/uL MPV 7.7 Neutrophils % 73 % Lymphocytes % 17 % Monocytes % 5 % Eosinophils % 5 % Basophils % 0 % Neutrophils # 6.3 (1.3-7.7) k/uL Lymphocytes # 1.4 (1.0-4.8) k/uL Monocytes # 0.4 (0-1.0) k/uL Eosinophils # 0.4 (0-0.7) k/uL Basophils # 0.0 (0-0.2) k/uL Sodium 138 (137-145) mmol/L Potassium 4.3 (3.5-5.1) mmol/L Chloride 104 (98-107) mmol/L Carbon Dioxide 25 (22-30) mmol/L Anion Gap 9 mmol/L BUN 7 (7-17) mg/dL Creatinine 0.72 (0.52-1.04) mg/dL Est GFR (CKD-EPI)AfAm >90 (>60 ml/min/1.73 sqM) Est GFR (CKD-EPI)NonAf >90 (>60 ml/min/1.73 sqM) Glucose 84 (74-99) mg/dL Calcium 9.5 (8.4-10.2) mg/dL Influenza Type A (PCR) Not Detected (Not Detectd) Influenza Type B (PCR) Not Detected (Not Detectd) RSV (PCR) Not Detected (Not Detectd) SARS-CoV-2 (PCR) Not Detected (Not Detectd) Disposition Clinical Impression: Periorbital cellulitis of left eye, Sinusitis Disposition: HOME SELF-CARE Condition: Good Instructions (If sedation given, give patient instructions): Sinusitis (ED), Periorbital Cellulitis in Adults (ED) Prescriptions: Amoxic-Pot Clav 875-125Mg [Augmentin 875-125] 1 tab PO Q12HR 7 Days #14 tab clindamycin HCL 300 mg PO Q8HR 7 Days #21 cap dexAMETHasone [Decadron] 4 mg PO ONCE 1 Days #1 tablet Is patient prescribed a controlled substance at d/c from ED?: No Referrals: Norman Muñoz DO [Primary Care Provider] - 1-2 days Time of Disposition: 14:06
--- NOTE | 2023-01-29 13:38 | XR ---
EXAMINATION TYPE: XR chest 2V DATE OF EXAM: 01/29/2023 1:31 PM COMPARISON: None TECHNIQUE: XR chest 2V Frontal and lateral views of the chest. CLINICAL INDICATION:Female, 37 years old with history of cough; FINDINGS: Lungs/Pleura: There is no evidence of pleural effusion, focal consolidation, or pneumothorax. Pulmonary vascularity: Unremarkable. Heart/mediastinum: Cardiomediastinal silhouette is unremarkable. IMPRESSION: No acute cardiopulmonary disease/process.
[2023-01-29] MEDS ORDERED: AMOXIC-POT CLAV 875-125MG 1 EACH TAB PO STA (14:06)
[2023-01-29] MEDS ORDERED: CLINDAMYCIN 150 MG CAP PO STA (14:08)
[2023-01-29 14:25] VITALS: BP 136/86; PULSE 85; RESP 18
== END 2023-01-29 14:25 | disposition home or self-care (01) ==
LOC: EC 12:23
DX: L03.213 Periorbital cellulitis (principal); J32.9 Chronic sinusitis, unspecified; Z20.822 Contact with and (suspected) exposure to COVID-19
CPT/HCPCS: 36415; 80048; 85025; 87636; 71046; 70486; 99284; 96374; 96375; 96361; J1100; J1885

== ENCOUNTER 2023-04-02 09:03 | Observation (INO) | payer OTHER ==
--- NOTE | 2023-04-02 09:21 | ED ---
General Adult HPI - General Chief complaint: Upper Respiratory Infection Stated complaint: SOB-weakness Time Seen by Provider: 04/02/23 09:10 Source: patient, RN notes reviewed, old records reviewed Mode of arrival: ambulatory Limitations: no limitations - History of Present Illness Initial comments: This is a 37-year-old female presents emergency department stating she started getting sick last Monday but is gotten progressively worse and on Monday she got considerably worse per patient states she feels short of breath and she is coughing quite a bit and she hears rattling in her chest per patient denies any abdominal pain. Patient states she does have some chest pain when she coughs and some back pain when she coughs. Patient states she thinks she had a fever but she's never taken her temperature she also had the chills. Patient states everybody at her house is sick but to her vertiginous have strep and she has not had any sore throat never has. - Related Data Home Medications Medication Instructions Recorded Confirmed Vit No.180/Iron/Folic 1 each PO DAILY 04/24/19 06/15/19 [ Plus Tablet] Previous Rx's Medication Instructions Recorded Amoxic-Pot Clav 875-125Mg 1 tab PO Q12HR 7 Days #14 tab 01/29/23 [Augmentin 875-125] clindamycin HCL 300 mg PO Q8HR 7 Days #21 cap 01/29/23 dexAMETHasone [Decadron] 4 mg PO ONCE 1 Days #1 tablet 01/29/23 Allergies Allergy/AdvReac Type Severity Reaction Status Date / Time No Known Allergies Allergy Verified 04/02/23 09:09 Review of Systems ROS Statement: Those systems with pertinent positive or pertinent negative responses have been documented in the HPI. ROS Other: All systems not noted in ROS Statement are negative. Past Medical History Past Medical History: No Reported History Additional Past Medical History / Comment(s): History of polycystic ovarian disease History of Any Multi-Drug Resistant Organisms: None Reported Past Surgical History: Section Past Anesthesia/Blood Transfusion Reactions: No Reported Reaction Past Psychological History: Depression Smoking Status: Never smoker Past Alcohol Use History: None Reported Past Drug Use History: None Reported - Past Family History Father Family Medical History: Cancer, Diabetes Mellitus, Hypertension Mother Family Medical History: Diabetes Mellitus General Exam - General Exam Comments Initial Comments: GENERAL: Patient is well-developed and well-nourished. Patient is nontoxic and well- hydrated and is in mild distress. ENT: Neck is soft and supple. No significant lymphadenopathy is noted. Oropharynx is clear. Moist mucous membranes. Neck has full range of motion without eliciting any pain. EYES: The sclera were anicteric and conjunctiva were pink and moist. Extraocular movements were intact and pupils were equal round and reactive to light. Eyelids were unremarkable. PULMONARY: Patient has crackles bilaterally CARDIOVASCULAR: Patient is tachycardic at about 115 beats a minute ABDOMEN: Soft and nontender with normal bowel sounds. SKIN: Skin is clear with no lesions or rashes and otherwise unremarkable. NEUROLOGIC: Patient is alert and oriented x3. Cranial nerves II through XII are grossly intact. Motor and sensory are also intact. Normal speech, volume and content. Symmetrical smile. MUSCULOSKELETAL: Normal extremities with adequate strength and full range of motion. LYMPHATICS: No significant lymphadenopathy is noted PSYCHIATRIC: Normal psychiatric evaluation. Limitations: no limitations Course Vital Signs 04/02/23 04/02/23 04/02/23 09:06 09:42 11:05 Temperature 99.2 F 99.4 F Pulse Rate 118 H 112 H Respiratory 22 20 18 Rate Blood Pressure 124/74 119/81 O2 Sat by Pulse 96 95 Oximetry 04/02/23 04/02/23 04/02/23 12:30 12:53 13:01 Temperature Pulse Rate 122 H 122 H 118 H Respiratory 18 Rate Blood Pressure 124/80 O2 Sat by Pulse 95 Oximetry 04/02/23 04/02/23 04/02/23 13:10 13:35 14:48 Temperature 98.0 F 98.9 F Pulse Rate 120 H 120 H 119 H Respiratory 18 24 20 Rate Blood Pressure 125/77 123/80 O2 Sat by Pulse 97 96 100 Oximetry Medical Decision Making - Medical Decision Making EKG was interpreted by myself shows a sinus tachycardia at 1 17 bpm WA interval 152 QRS is 89 QT interval 341 QTC is 410. Patient's EKG shows no ST segment. Depression. Was pt. sent in by a medical professional or institution (, PA, CRNA, urgent c are, hospital, or retirement...) When possible be specific @ -No Did you speak to anyone other than the patient for history (EMS, parent, family, police, friend...)? What history was obtained from this source @ -No Did you review nursing and triage notes (agree or disagree)? Why? @ -I reviewed and agree with nursing and triage notes Were old charts reviewed (outside hosp., previous admission, EMS record, old EKG, old radiological studies, urgent care reports/EKG's, retirement records)? Report findings @ -I reviewed prior charts prior lab work on this patient Differential Diagnosis (chest pain, altered mental status, abdominal pain women, abdominal pain men, vaginal bleeding, weakness, fever, dyspnea, syncope, headache, dizziness, GI bleed, back pain, seizure, CVA, palpatations, mental health, musculoskeletal)? @ -Differential Dyspnea: Coronary syndrome, arrhythmia, tamponade, asthma, COPD, pulmonary embolism, pneumonia, pneumothorax, pulmonary effusion, anaphylaxis, diabetic ketoacidosis, flailed chest, pulmonary contusion, diaphragmatic rupture, anemia, neuromuscular, this is not meant to be an all-inclusive list. EKG interpreted by me (3pts min.). @ -As above X-rays interpreted by me (1pt min.). @ -X-ray of the chest shows opacification consistent with atypical pneumonia CT interpreted by me (1pt min.). @ -None done U/S interpreted by me (1pt. min.). @ -None done What testing was considered but not performed or refused? (CT, X-rays, U/S, labs)? Why? @ -None What meds were considered but not given or refused? Why? @ -None Did you discuss the management of the patient with other professionals (professionals i.e. , PA, CRNA, lab, RT, psych nurse, executive secretary social welfare, criminal lawyer, teacher, seal delivery vehicle officer, upper caser)? Give summary @ -No Was smoking cessation discussed for >3mins.? @ -No Was critical care preformed (if so, how long)? @ -No Were there social determinants of health that impacted care today? How? (Homelessness, low income, unemployed, alcoholism, drug addiction, transportation, low edu. Level, literacy, decrease access to med. care, prison, rehab)? @ -No Was there de-escalation of care discussed even if they declined (Discuss DNR or withdrawal of care, Hospice)? DNR status @ -No What co-morbidities impacted this encounter? (DM, HTN, Smoking, COPD, CAD, Cancer, CVA, ARF, Chemo, Hep., AIDS, mental health diagnosis, sleep apnea, morbid obesity)? @ -None Was patient admitted / discharged? Hospital course, mention meds given and route, prescriptions, significant lab abnormalities, going to OR and other pertinent info. @ -Received Rocephin emergency department with a 2 only and will go home on Zithromax. Patient will also be given a breathing treatment . After the patient was discharged went in her heart rate was over 120 beats a minute and she still sounded very crackly in the bases we get a d-dimer was normal and patient's heart rate was up to 125 and she still sounded crackly and was feeling short of breath and was at this point time we decided to admit the patient for further antibiotic treatment steroid treatment and breathing treatments. We will consult pulmonary as well. I spoke with the [facility] and they accepted the admission. Patient had Rocephin prior to physician being me that the patient was going to need to stay and so blood cultures were done initially but they were done after the fact. Undiagnosed new problem with uncertain prognosis? @ -No Drug Therapy requiring intensive monitoring for toxicity (Heparin, Nitro, Insulin, Cardizem)? @ -No Were any procedures done? @ -No Diagnosis/symptom? @ -Pneumonia with bronchospasms Acute, or Chronic, or Acute on Chronic? @ -Acute Uncomplicated (without systemic symptoms) or Complicated (systemic symptoms)? @ -complicated Side effects of treatment? @ -No Exacerbation, Progression, or Severe Exacerbation? @ -No Poses a threat to life or bodily function? How? (Chest pain, [place], [place], pneumonia, PE, COPD, DKA, ARF, appy, cholecystitis, CVA, Diverticulitis, Homicidal, Suicidal, threat to staff... and all critical care pts) @ -Yes this could lead to hypoxia and end organ dysfunction - Lab Data Result diagrams: 04/02/23 09:47 04/02/23 11:40 Lab Results 04/02/23 04/02/23 04/02/23 Range/Units 09:47 09:56 11:40 WBC 14.1 H (3.8-10.6) k/uL RBC 4.49 (3.80-5.40) m/uL Hgb 14.0 (11.4-16.0) gm/dL Hct 41.2 (34.0-46.0) % MCV 91.7 (80.0-100.0) fL MCH 31.1 (25.0-35.0) pg MCHC 33.9 (31.0-37.0) g/dL RDW 12.6 (11.5-15.5) % Plt Count 307 (150-450) k/uL MPV 7.6 Neutrophils % 84 % Lymphocytes % 9 % Monocytes % 5 % Eosinophils % 1 % Basophils % 0 % Neutrophils # 11.8 H (1.3-7.7) k/uL Lymphocytes # 1.3 (1.0-4.8) k/uL Monocytes # 0.7 (0-1.0) k/uL Eosinophils # 0.2 (0-0.7) k/uL Basophils # 0.0 (0-0.2) k/uL D-Dimer (<0.60) mg/L FEU Sodium 137 (137-145) mmol/L Potassium 4.2 (3.5-5.1) mmol/L Chloride 105 (98-107) mmol/L Carbon Dioxide 23 (22-30) mmol/L Anion Gap 9 mmol/L BUN 9 (7-17) mg/dL Creatinine 0.73 (0.52-1.04) mg/dL Est GFR (CKD-EPI)AfAm >90 (>60 ml/min/1.73 sqM) Est GFR (CKD-EPI)NonAf >90 (>60 ml/min/1.73 sqM) Glucose 98 (74-99) mg/dL Calcium 9.1 (8.4-10.2) mg/dL Total Bilirubin 0.8 (0.2-1.3) mg/dL AST 18 (14-36) U/L ALT 15 (4-34) U/L Alkaline Phosphatase 71 (38-126) U/L NT-Pro-B Natriuret Pep <20 pg/mL Total Protein 7.3 (6.3-8.2) g/dL Albumin 3.9 (3.5-5.0) g/dL Influenza Type A (PCR) Not Detected (Not Detectd) Influenza Type B (PCR) Not Detected (Not Detectd) RSV (PCR) Not Detected (Not Detectd) SARS-CoV-2 (PCR) Not Detected (Not Detectd) 04/02/23 Range/Units 13:41 WBC (3.8-10.6) k/uL RBC (3.80-5.40) m/uL Hgb (11.4-16.0) gm/dL Hct (34.0-46.0) % MCV (80.0-100.0) fL MCH (25.0-35.0) pg MCHC (31.0-37.0) g/dL RDW (11.5-15.5) % Plt Count (150-450) k/uL MPV Neutrophils % % Lymphocytes % % Monocytes % % Eosinophils % % Basophils % % Neutrophils # (1.3-7.7) k/uL Lymphocytes # (1.0-4.8) k/uL Monocytes # (0-1.0) k/uL Eosinophils # (0-0.7) k/uL Basophils # (0-0.2) k/uL D-Dimer 0.59 (<0.60) mg/L FEU Sodium (137-145) mmol/L Potassium (3.5-5.1) mmol/L Chloride (98-107) mmol/L Carbon Dioxide (22-30) mmol/L Anion Gap mmol/L BUN (7-17) mg/dL Creatinine (0.52-1.04) mg/dL Est GFR (CKD-EPI)AfAm (>60 ml/min/1.73 sqM) Est GFR (CKD-EPI)NonAf (>60 ml/min/1.73 sqM) Glucose (74-99) mg/dL Calcium (8.4-10.2) mg/dL Total Bilirubin (0.2-1.3) mg/dL AST (14-36) U/L ALT (4-34) U/L Alkaline Phosphatase (38-126) U/L NT-Pro-B Natriuret Pep pg/mL Total Protein (6.3-8.2) g/dL Albumin (3.5-5.0) g/dL Influenza Type A (PCR) (Not Detectd) Influenza Type B (PCR) (Not Detectd) RSV (PCR) (Not Detectd) SARS-CoV-2 (PCR) (Not Detectd) Disposition Clinical Impression: Pneumonia, Acute bronchospasm Disposition: ADMITTED IP TO THIS HOSP Is patient prescribed a controlled substance at d/c from ED?: No Referrals: Norman Muñoz DO [Primary Care Provider] - 1-2 days Time of Disposition: 12:36
--- NOTE | 2023-04-02 10:13 | XR ---
EXAMINATION TYPE: XR chest 2V DATE OF EXAM: 04/02/2023 9:59 AM CLINICAL INDICATION:Female, 37 years old with history of Difficulty breathing ; [facility] COMPARISON: Chest radiographs from 323 TECHNIQUE: XR chest 2V Frontal and lateral views of the chest. FINDINGS: Lungs/Pleura: Scattered subtle reticular and hazy opacities. No evidence of pneumothorax, focal conso lidation or pleural effusion. Pulmonary vascularity: Unremarkable. Heart/mediastinum: Cardiomediastinal silhouette is unremarkable. Musculoskeletal: No acute osseous pathology. IMPRESSION: Subtle scattered opacities which may represent an atypical pneumonia.
[2023-04-02 11:08] LABS: Basophils % (A) 0 %; Eosinophils # (A) 0.2 k/uL (0-0.7); Eosinophils % (A) 1 %; HCT 41.2 % (34.0-46.0); Lymphocytes # (A) 1.3 k/uL (1.0-4.8); Lymphocytes % (A) 9 %; MCH 31.1 pg (25.0-35.0); MCHC 33.9 g/dL (31.0-37.0); MCV 91.7 fL (80.0-100.0); Mean Platelet Volume 7.6; Monocytes # (A) 0.7 k/uL (0-1.0); Monocytes % (A) 5 %; Neutrophils # (A) 11.8 k/uL (1.3-7.7); Neutrophils % (A) 84 %; Platelet Count 307 k/uL (150-450); RBC 4.49 m/uL (3.80-5.40); RDW 12.6 % (11.5-15.5); WBC 14.1 k/uL (3.8-10.6)
[2023-04-02 12:06] LABS: ALT 15 U/L (4-34); AST 18 U/L (14-36); African American GFR (CKD) >90 (>60 ml/min/1.73 sqM); Albumin 3.9 g/dL (3.5-5.0); Alkaline Phosphatase 71 U/L (38-126); Anion Gap 9 mmol/L; Blood Urea Nitrogen 9 mg/dL (7-17); Calcium 9.1 mg/dL (8.4-10.2); Carbon Dioxide 23 mmol/L (22-30); Chloride 105 mmol/L (98-107); Glucose 98 mg/dL (74-99); Non-African American GFR(CKD) >90 (>60 ml/min/1.73 sqM); Potassium 4.2 mmol/L (3.5-5.1); Sodium 137 mmol/L (137-145); Total Bilirubin 0.8 mg/dL (0.2-1.3); Total Protein 7.3 g/dL (6.3-8.2)
[2023-04-02 12:14] LABS: NT-Pro-B-Type Natriuretic Pept <20 pg/mL
[2023-04-02] MEDS ORDERED: SODIUM CHLORIDE 0.9% 500 ML 500 ML IV ONE ×2 (12:27→13:34)
[2023-04-02] MEDS ORDERED: cefTRIAXone IN SWFI 1,000 MG/10 ML SYRINGE IVP STA (12:37)
[2023-04-02] MEDS ORDERED: IPRATROPIUM-ALBUTEROL 3 ML NEB INHALATION STA (12:39)
[2023-04-02] MEDS ORDERED: methylPREDNISolone SOD SUCCI 125 MG/2 ML VIAL IV STA (13:21)
[2023-04-02] MEDS ORDERED: ALBUTEROL NEBULIZED 2.5 MG/3 ML INHALATION PRN (15:02)
[2023-04-02] MEDS ORDERED: AZITHROMYCIN 500 MG in SODIUM CHLORIDE 0.9% 250 ML IVPB STA (15:02)
[2023-04-02] MEDS ORDERED: IPRATROPIUM-ALBUTEROL 3 ML NEB INHALATION PRN (15:02)
[2023-04-02] MEDS ORDERED: PNEUMONIA PROTOCOL UTILIZED 1 EACH MISC PO PRN (15:02)
--- NOTE | 2023-04-02 15:56 | P.CNPUL ---
History of Present Illness Consult date: 04/02/23 Requesting physician: Amrik Carrera Reason for consult: dyspnea, cough, pneumonia Chief complaint: Productive Cough, shortness of breath, back pain History of present illness: This is a 57-year-old female, ex-smoker quit smoking over 10 years ago, patient has been having symptoms of URI for the last few weeks. Patient was treated recently in the ER and in the walk-in clinic mostly with symptoms of pressure and fullness over her sinuses, feeling congested, and having cough. Patient has been on Augmentin and clindamycin for her symptoms with minimal improvement. Over the last 1 week patient developed worsening cough which is productive with thick white phlegm, associated with shortness of breath, occasional wheezing, and some vague back pain in the midthoracic area with coughing. Looking back at her last visit to our ER was 01/29/23 which is basically 2 months ago and at that time she came in with facial pain and left-sided headache. Patient is also complaining of nasal drainage and fullness sensation over the left side of the face with facial swelling. Patient was discharged home on amoxicillin and clindamycin as well as Decadron 1 dose. Since that visit to the ER, patient was seen in the walk-in clinic, and she was also given again antibiotics with steroids, but no improvement. Today the patient came into the ER again and her chest x-ray showed some questionable atypical pneumonia at the bases. Patient had subtle scattered opacities particular and hazy in appearance, but no clear- cut evidence of consolidation or pleural effusion. Patient tested negative for COVID-19 screening, negative for influenza A and influenza B as well as RSV. Nonetheless patient was admitted, and this consult was initiated. Patient did have leukocytosis with WBC count of 14.1, negative d-dimer, normal basic metabolic profile and renal profile patient was told that she had asthma about a few weeks ago and she was treated also with bronchodilators/albuterol. On this admission the patient was placed on Rocephin, methylprednisolone, Zithromax, DuoNeb updrafts, and I will also add Symbicort. Review of Systems Constitutional: Low-grade fever, weakness, fatigue, no aches and pains. HEENT: As noted in HPI Pulmonary: As noted in HPI Cardiac: Negative GI: Negative no diarrhea no abdominal pain no nausea or vomiting Genitourinary: Negative Hematologic: Negative Psychiatric: History of generalized anxiety disorder Neurologic: Negative Skin: Negative Musculoskeletal: Negative except for back pain upon coughing. Past Medical History Past Medical History: No Reported History Additional Past Medical History / Comment(s): History of polycystic ovarian disease History of Any Multi-Drug Resistant Organisms: None Reported Past Surgical History: Section Past Anesthesia/Blood Transfusion Reactions: No Reported Reaction Past Psychological History: Depression Smoking Status: Never smoker Past Alcohol Use History: None Reported Past Drug Use History: None Reported - Past Family History Father Family Medical History: Cancer, Diabetes Mellitus, Hypertension Mother Family Medical History: Diabetes Mellitus Medications and Allergies Allergies Allergy/AdvReac Type Severity Reaction Status Date / Time No Known Allergies Allergy Verified 04/02/23 15:43 Physical Exam Vitals: Vital Signs Temp Pulse Resp BP Pulse Ox 04/02/23 14:48 98.9 F 119 H 20 123/80 100 04/02/23 13:35 120 H 24 96 04/02/23 13:10 98.0 F 120 H 18 125/77 97 04/02/23 13:01 118 H 04/02/23 12:53 122 H 04/02/23 12:30 122 H 18 124/80 95 04/02/23 11:05 99.4 F 112 H 18 119/81 95 04/02/23 09:42 20 04/02/23 09:06 99.2 F 118 H 22 124/74 96 Intake and Output 04/02/23 04/02/23 04/02/23 06:59 14:59 22:59 Other: Weight 106.594 kg Physical Exam: Revealed 37-year-old female in no distress, on room air with O2 saturation ranging between 96 up to 100% Head: Atraumatic, normocephalic. HEENT:[Neck is supple.] [No neck masses.] [No thyromegaly.] [No JVD.] No tenderness whatsoever over the maxillary sinuses Chest: [Minimal fine crackles at the bases with faint wheezing on forced expiratory maneuver only Cardiac Exam: [Normal S1 and S2, no S3 gallop, no murmur.] Abdomen: [Soft, nontender, no megaly, no rebound, no guarding, normal bowel sounds.] Extremities: [No clubbing, no edema, no cyanosis.] Neurological Exam: [No focal neurologic deficit.] Alert oriented 3 Psychiatric: Normal mood affect and normal mental status examination. Skin: No rashes. Results - Laboratory Findings CBC and BMP: 04/02/23 09:47 04/02/23 11:40 PT/INR, D-dimer D-Dimer 0.59 mg/L FEU (<0.60) 04/02/23 13:41 Abnormal lab findings: Abnormal Labs 04/02/23 09:47 WBC 14.1 H Neutrophils # 11.8 H - Diagnostic Findings Chest x-ray: image reviewed (As noted in HPI) Assessment and Plan Assessment: Impression: Chronic URI and chronic cough, exact etiology is not clear could be post viral in nature. Possible bilateral atypical pneumonia Acute exacerbation of mild intermittent asthma or possibly cough variant asthma ex smoker quit smoking over 10 years ago. Recent episode of sinusitis treated, resolved but she went on to develop mostly pulmonary symptoms. Recommendation: Continue present course of treatment including antibiotics, Rocephin and Zithromax Continue steroids and bronchodilators, add Symbicort Ordered pro-calcitonin level Check Legionella antigen Check sputum cultures We will continue to follow. Consider discharge planning in the next 24 hours Time with Patient: Greater than 30
[2023-04-02] MEDS ORDERED: ONDANSETRON 4 MG/2 ML VIAL IVP PRN (16:47)
[2023-04-02] MEDS: methylPREDNISolone SOD SUCCI 125 MG/2 ML VIAL IV SCH ×2 (17:19→22:56)
[2023-04-02] MEDS ORDERED: ACETAMINOPHEN TAB 325 MG TAB PO PRN (19:42)
[2023-04-02] MEDS: SYMBICORT 160-4.5 MCG INHALER INHALATION SCH (21:06)
[2023-04-02] MEDS ORDERED: IBUPROFEN 400 MG TAB PO PRN (22:28)
[2023-04-02] MEDS: HEPARIN SODIUM,PORCINE 5,000 UNIT/ML 1 ML VIAL SQ SCH (22:56)
--- NOTE | 2023-04-03 00:26 | P.HPIM ---
History of Present Illness H&P Date: 04/02/23 Chief Complaint: Cough congestion shortness of breath Patient is a 37-year-old female with a known history of PCOD, depression and prior history of smoking quit 10 years ago presents to ER with complaints of shortness of breath and cough and congestion which has been present for the past 1 month. Patient states that she was diagnosed with left facial cellulitis on 01/29/2023 thought to be due to sinus infection and fullness of her sinuses and was given 10 days of antibiotic course and was given Decadron x1 dose.. For the past 1 week patient has been cough with whitish sputum production and shortness of breath and wheezing and lower rib cage pain with severe coughing. Patient's daughter is also sick recently. She was seen in the walk-in clinic about a week ago and was given antibiotic course again along with steroids without much improvement. Patient came to ER today due to worsening symptoms. Chest x-ray showed subtle scattered opacities which may represent an atypical pneumonia. EKG showed sinus tachycardia. Laboratory showed WBC 14.1 hemoglobin 14.0 and platelets 307 Sodium 137 potassium 4.2 chloride 105 bicarb is 23 BUN 9 and creatinine 0.73 D-dimer level is 0.59 Review of Systems Constitutional: Patient denies any fever or chills . no Generalized weakness. Abdomen: Patient denied any nausea or vomiting or abd. pain Cardiovascular: Patient denies any chest pain patient does have short of breath no palpitations. Respiratory: Cough with whitish sputum production. Congestion and shortness of breath Neurologic: Patient denied any numbness or tingling or headache. Musculoskeletal: Patient denies any complaints of joint swelling or deformity. Skin: Negative Psychiatric: Negative Endocrine: No heat or cold intolerance. No recent weight gain. Genitourinary: No dysuria or hematuria. All other 14 point ROS negative except the above Past Medical History Past Medical History: No Reported History Additional Past Medical History / Comment(s): History of polycystic ovarian disease History of Any Multi-Drug Resistant Organisms: None Reported Past Surgical History: Section Past Anesthesia/Blood Transfusion Reactions: No Reported Reaction Past Psychological History: Depression Additional Psychological History / Comment(s): father october 2015 Smoking Status: Former smoker Past Alcohol Use History: None Reported Past Drug Use History: None Reported - Past Family History Father Family Medical History: Cancer, Diabetes Mellitus, Hypertension Mother Family Medical History: Diabetes Mellitus Medications and Allergies Home Medications Medication Instructions Recorded Confirmed Type Albuterol Sulfate [Albuterol 2 puff PO RT-Q4H PRN 04/02/23 04/02/23 History Sulfate Hfa] Fluticasone Nasal [place] [Flonase 2 spray EA NOSTRIL DAILY 04/02/23 04/02/23 History Nasal [place]] Fluticasone Propionate 110 Mcg 2 puff INHALATION RT-BID 04/02/23 04/02/23 History [Flovent 110 Mcg Inhaler] Sertraline [Zoloft] 100 mg PO DAILY 04/02/23 04/02/23 History Allergies Allergy/AdvReac Type Severity Reaction Status Date / Time No Known Allergies Allergy Verified 04/02/23 15:43 Physical Exam Vitals: Vital Signs Temp Pulse Pulse Resp BP BP Pulse Ox 04/02/23 20:00 98.3 F 96 16 112/77 93 L 04/02/23 19:31 120 H 14 04/02/23 16:45 98.6 F 120 H 14 109/76 95 04/02/23 14:48 98.9 F 119 H 20 123/80 100 04/02/23 13:35 120 H 24 96 04/02/23 13:10 98.0 F 120 H 18 125/77 97 04/02/23 13:01 118 H 04/02/23 12:53 122 H 04/02/23 12:30 122 H 18 124/80 95 04/02/23 11:05 99.4 F 112 H 18 119/81 95 04/02/23 09:42 20 04/02/23 09:06 99.2 F 118 H 22 124/74 96 Intake and Output 04/02/23 04/02/23 04/02/23 06:59 14:59 22:59 Output Total 500 Balance -500 Output: Urine 500 Other: Weight 106.594 kg 106.594 kg PHYSICAL EXAMINATION: Patient is lying in the bed comfortably, no acute distress, awake alert and oriented.. HEENT: Normocephalic. Neck is supple. Pupils reactive. Nostrils clear. Oral cavity is moist. Neck reveals no JVD, carotid bruits, or thyromegaly. CHEST EXAMINATION: Trachea is central. Symmetrical expansion. Bilateral diffuse wheezing and coarse breath sounds.. CARDIAC: Normal S1, S2 with no gallops. No murmurs ABDOMEN: Soft. Bowel sounds present. Nontender. No organomegaly. No abdominal bruits. Extremities: reveal no edema. No clubbing or cyanosis Neurologically awake, alert, oriented x3 with well-coordinated movements. No focal deficits noted Skin: No rash or skin lesions. Psychiatric: Coperative. Nonsuicidal, Musculoskeletal: No joint swelling or deformity. Normal range of motion. Results CBC & Chem 7: 04/02/23 09:47 04/02/23 11:40 Labs: Abnormal Lab Results - Last 24 Hours (Table) 04/02/23 Range/Units 09:47 WBC 14.1 H (3.8-10.6) k/uL Neutrophils # 11.8 H (1.3-7.7) k/uL Thrombosis Risk Factor Assmnt - DVT/VTE Prophylaxis DVT/VTE Prophylaxis: Pharmacologic Prophylaxis ordered - Choose All That Apply Any of the Below Risk Factors Present?: Yes Each Factor Represents 1 point: Obesity (BMI >25), Serious lung disease incl. pneumonia (< 1month) Other Risk Factors: No Other congenital or acquired thrombophilia - If yes, enter type in comment: No Thrombosis Risk Factor Assessment Total Risk Factor Score: 2 Thrombosis Risk Factor Assessment Level: Low Risk Assessment and Plan Assessment: Shortness of breath secondary to acute exacerbation of mild intermittent asthma. Possible bilateral atypical pneumonia Chronic URI symptoms for the past 2 months History of left facial cellulitis diagnosed on 01/29/2023 status post antibiotic course Prior history of smoking quit 10 years ago DVT prophylax with heparin subcu Obesity with a BMI 35.7 Plan: Patient will be continued on IV Solu-Medrol 60 mg every 6 hourly and DuoNebs and also placed on Symbicort. Started on antibiotics ceftriaxone azithromycin. Follow-up blood cultures. S putum cultures were ordered. Follow-up Legionella urine antigen and also procalcitonin level. Pulmonary is on board. Continue home medications and follow-up closely. Time with Patient: Greater than 30
[2023-04-03 02:45] VITALS: RESP 18
[2023-04-03] MEDS: methylPREDNISolone SOD SUCCI 125 MG/2 ML VIAL IV SCH (05:22)
--- NOTE | 2023-04-03 07:22 | XR ---
EXAMINATION TYPE: XR chest 2V DATE OF EXAM: 04/03/2023 COMPARISON: 04/02/2023 INDICATION: Pneumonia TECHNIQUE: Frontal and lateral views of the chest are obtained. FINDINGS: The heart size is normal. The pulmonary vasculature is normal. Mild bibasilar infiltrates are present. IMPRESSION: 1. Mild bibasilar infiltrates. Correlate for subsegmental atelectasis.
[2023-04-03 07:49] VITALS: BP 123/84; PULSE 92; TEMP 98.4
[2023-04-03] MEDS: SYMBICORT 160-4.5 MCG INHALER INHALATION SCH (08:26)
[2023-04-03 08:29] LABS: Basophils # (A) 0.01 X 10*3/uL (0.00-0.10); Basophils % (A) 0.1 %; Eosinophils # (A) 0 X 10*3/uL (0.04-0.35); Eosinophils % (A) 0 %; HGB 12.5 d/dL (12.0-15.0); Lymphocytes # (A) 0.82 X 10*3/uL (0.90-5.00); Lymphocytes % (A) 7.9 %; MCH 31.4 pg (27.0-32.0); MCHC 33.8 d/dL (32.0-37.0); Mean Platelet Volume 10.1 FL (9.5-12.2); Monocytes # (A) 0.14 X 10*3/uL (0.20-1.00); Monocytes % (A) 1.4 %; NRBC Per 100 WBC 0 X 10*3/uL (0.00-0.01); Neutrophils # (A) 9.32 X 10*3/uL (1.80-7.70); Platelet Count 313 X 10*3/uL (140-440); RBC 3.98 X 10*6/uL (4.10-5.20); RDW 12.1 % (11.5-14.5); WBC 10.35 X 10*3/uL (4.50-10.00)
[2023-04-03 08:41] LABS: Blood Urea Nitrogen 8.6 mg/dL (9.0-27.0); Chloride 107 mmol/L (96-109); Glucose 132 mg/dL (70-110); Potassium 4.5 mmol/L (3.5-5.5); Sodium 139 mmol/L (135-145)
[2023-04-03 08:42] LABS: Calcium 9.3 mg/dL (8.7-10.3); Carbon Dioxide 22.2 mmol/L (21.6-31.8)
[2023-04-03] MEDS ORDERED: SERTRALINE 100 MG TAB PO SCH (09:00)
[2023-04-03] MEDS: HEPARIN SODIUM,PORCINE 5,000 UNIT/ML 1 ML VIAL SQ SCH (09:40)
[2023-04-03] MEDS ORDERED: methylPREDNISolone 4 MG TAB TAPER PO SCH (10:00)
[2023-04-03] MEDS ORDERED: AZITHROMYCIN 500 MG TAB PO SCH (12:00)
--- NOTE | 2023-04-03 12:38 | P.PN ---
Subjective Progress Note Date: 04/03/23 This is a 57-year-old female, ex-smoker quit smoking over 10 years ago, patient has been having symptoms of URI for the last few weeks. Patient was treated recently in the ER and in the walk-in clinic mostly with symptoms of pressure and fullness over her sinuses, feeling congested, and having cough. Patient has been on Augmentin and clindamycin for her symptoms with minimal improvement. Over the last 1 week patient developed worsening cough which is productive with thick white phlegm, associated with shortness of breath, occasional wheezing, and some vague back pain in the midthoracic area with coughing. Looking back at her last visit to our ER was 01/29/23 which is basically 2 months ago and at that time she came in with facial pain and left-sided headache. Patient is also complaining of nasal drainage and fullness sensation over the left side of the face with facial swelling. Patient was discharged home on amoxicillin and clindamycin as well as Decadron 1 dose. Since that visit to the ER, patient was seen in the walk-in clinic, and she was also given again antibiotics with steroids, but no improvement. Today the patient came into the ER again and her chest x-ray showed some questionable atypical pneumonia at the bases. Patient had subtle scattered opacities particular and hazy in appearance, but no clear- cut evidence of consolidation or pleural effusion. Patient tested negative for COVID-19 screening, negative for influenza A and influenza B as well as RSV. Nonetheless patient was admitted, and this consult was initiated. Patient did have leukocytosis with WBC count of 14.1, negative d-dimer, normal basic metabolic profile and renal profile patient was told that she had asthma about a few weeks ago and she was treated also with bronchodilators/albuterol. On this admission the patient was placed on Rocephin, methylprednisolone, Zithromax, DuoNeb updrafts, and I will also add Symbicort. The patient is seen today 04/03/2023 in follow-up on the regular medical floor. She is currently sitting up in bed. Awake and alert in no acute distress. She is maintaining O2 saturations in the 90s on room air. Follow-up chest x-ray revealed mild bibasilar infiltrates. Suspect subsegmental atelectasis. Her procalcitonin was 0.07. Legionella screen negative. White count 10.3. Sodium hemoglobin 12.5. Platelets 313. Sodium 139. Potassium 4.5. Bicarb 22. BUN 9. Creatinine 0.5. Glucose 132. She is currently on DuoNeb inhalations, Symbicort, antibiotics in the form of ceftriaxone and azithromycin. Remains on Solu-Medrol. Objective - Vital Signs Vital signs: Vital Signs Temp 98.4 F 04/03/23 06:59 Pulse 92 04/03/23 06:59 Resp 18 04/03/23 06:59 BP 123/84 04/03/23 06:59 Pulse Ox 90 L 04/03/23 08:28 FiO2 Intake & Output 04/02/23 04/03/23 04/03/23 18:59 06:59 18:59 Output Total 250 250 Balance -250 -250 Weight 106.594 kg Output: Urine 250 250 Other: # Voids 0 - Exam GENERAL EXAM: Alert, pleasant 37-year-old female, sitting up in bed, on room air, comfortable in no apparent distress. HEAD: Normocephalic. EYES: Normal reaction of pupils, equal size. NOSE: Clear with pink turbinates. THROAT: No erythema or exudates. NECK: No masses, no JVD. CHEST: No chest wall deformity. LUNGS: Equal air entry with few scattered crackles. CVS: S1 and S2 normal with no audible murmur, regular rhythm. ABDOMEN: No hepatosplenomegaly, normal bowel sounds, no guarding or rigidity. SPINE: No scoliosis or deformity SKIN: No rashes CENTRAL NERVOUS SYSTEM: No focal deficits, tone is normal in all 4 extremities. EXTREMITIES: There is no peripheral edema. No clubbing, no cyanosis. Peripheral pulses are intact. - Labs CBC & Chem 7: 04/03/23 05:08 04/03/23 05:08 Labs: Abnormal Lab Results - Last 24 Hours (Table) 04/03/23 04/03/23 Range/Units 05:08 05:08 WBC 10.35 H (4.50-10.00) X 10*3/uL RBC 3.98 L (4.10-5.20) X 10*6/uL Hct 37.0 L (37.2-46.3) % Neutrophils # 9.32 H (1.80-7.70) X 10*3/uL Lymphocytes # 0.82 L (0.90-5.00) X 10*3/uL Monocytes # 0.14 L (0.20-1.00) X 10*3/uL Eosinophils # 0 L (0.04-0.35) X 10*3/uL BUN 8.6 L (9.0-27.0) mg/dL Creatinine 0.5 L (0.6-1.5) mg/dL Glucose 132 H (70-110) mg/dL Microbiology - Last 24 Hours (Table) 04/02/23 17:15 Gram Stain - Preliminary Sputum Assessment and Plan Assessment: Chronic URI and chronic cough, exact etiology is not clear could be post viral in nature. Pro-calcitonin negative at 0.07. Urine legionella screen negative Possible bilateral atypical pneumonia, follow-up chest x-ray reveals atelectasis. Acute exacerbation of mild intermittent asthma or possibly cough variant asthma Former smoker quit smoking over 10 years ago. Recent episode of sinusitis treated, resolved but she went on to develop mostly pulmonary symptoms. Plan: The patient was seen and evaluated Chest x-ray, labs and medications reviewed Progress at 20 and negative Legionella screen negative Discontinue antibiotics Discontinue Solu-Medrol, initiate Medrol Dosepak Continue Symbicort, albuterol This patient was seen independently by the nurse practitioner I have personally seen and examined the patient, performed the documentation and the assessment and plan as written. Number of minutes spent on the visit: 22.
--- NOTE | 2023-04-07 09:40 | P.DS ---
Providers Date of admission: 04/02/23 15:05 Expected date of discharge: 04/03/23 Attending physician: Amrik Carrera Consults: 04/02/23 15:02 Consult Physician Routine Consulting Provider: Darleen Holland Consult Reason/Comments: Pneumonia, bronchospasms Do you want consulting provider notified?: Yes Primary care physician: Norman Muñoz Hospital Course: Final diagnosis Shortness of breath secondary to acute exacerbation of mild intermittent asthma. Possible bilateral atypical pneumonia, suspicion is low, Procalcitonin is within normal limits Chronic URI symptoms for the past 2 months History of left facial cellulitis diagnosed on 01/29/2023 status post antibiotic course Prior history of smoking quit 10 years ago DVT prophylax with heparin subcu Obesity with a BMI 35.7 Discharge disposition Patient is being discharged in a stable condition with guarded prognosis to home. Patient will follow-up with Dr. Muñoz in the outpatient setting upon discharge. Patient is to continue with prednisone taper and inhalers and outpatient follow-up with as scheduled. Total time taken is greater than 35 minutes. Hospital course This is a 37-year-old female who was recently admitted with increased shortness of breath with acute exacerbation of asthma being closely monitored. Pulmonary following maintained on IV steroids along with breathing inhalational treatments showing clinical improvement. Patient was empirically started on antibiotics and calcitonin is within normal limits and will not require antibiotics on discharge. Patient is to follow-up with pulmonary for further testing in the outpatient setting. Patient has been cleared by pulmonary. Please refer to consultation notes for further HPI. Currently no reports of chest pain, no worsening shortness of breath, or palpitations. Patient is afebrile. Patient is maintaining saturations above 90% on room air. No reports of nausea or vomiting and patient is tolerating diet. Patient will be discharged home today. Physical exam: Gen: This is a 37-year-old female who is awake, alert and oriented 3, well- developed, well-nourished, obese HEENT: Head is atraumatic, normocephalic. Pupils equal, round. Sclerae is anicteric. NECK: Supple. No JVD. No lymphadenopathy. No thyromegaly. LUNGS: Breath sounds diminished bilaterally with some scattered rhonchi. No intercostal retractions. HEART: Regular rate and rhythm. No murmur. ABDOMEN: Soft. Obese. Bowel sounds are present. No masses. No tenderness. EXTREMITIES: No pedal edema. No calf tenderness. NEUROLOGICAL: Patient is awake, alert and oriented x3. Cranial nerves 2 through 12 are grossly intact. Please refer to medication reconciliation sheet for a list of medications. The impression and plan of care has been dictated by Monie Robison, Nurse Practitioner as directed. Dr. Debi MD I have performed a history and examination and MDM of this patient, discussed the same with the dictator, and agree with the dictator's assessment and plan as written ,documented as a scribe. Based on total visit time, I have performed more than 50% of the visit. Patient Condition at Discharge: Good Plan - Discharge Summary Discharge Rx Participant: No New Discharge Prescriptions: New methylPREDNISolone Dose Pack [Medrol Dose Pack] 4 mg PO DIRECTED #21 tab Ibuprofen [Motrin] 400 mg PO TID PRN #30 tab PRN Reason: Pain Budesonide-Formot 160-4.5 Mcg [Symbicort 160-4.5 Mcg Inhaler] 2 puff INHALATION RT-BID 30 Days #1 each Acetaminophen Tab [Tylenol] 650 mg PO Q6HR PRN tab PRN Reason: Fever And/ Or Pain Continue Fluticasone Nasal [place] [Flonase Nasal [place]] 2 spray EA NOSTRIL DAILY Albuterol Sulfate [Albuterol Sulfate Hfa] 2 puff PO RT-Q4H PRN PRN Reason: Shortness Of Breath Sertraline [Zoloft] 100 mg PO DAILY Fluticasone Propionate 110 Mcg [Flovent 110 Mcg Inhaler] 2 puff INHALATION RT-BID Discharge Medication List Albuterol Sulfate [Albuterol Sulfate Hfa] 2 puff PO RT-Q4H PRN 04/02/23 [History] Fluticasone Nasal [place] [Flonase Nasal [place]] 2 spray EA NOSTRIL DAILY 04/02/23 [History] Fluticasone Propionate 110 Mcg [Flovent 110 Mcg Inhaler] 2 puff INHALATION RT- BID 04/02/23 [History] Sertraline [Zoloft] 100 mg PO DAILY 04/02/23 [History] Acetaminophen Tab [Tylenol] 650 mg PO Q6HR PRN tab 04/03/23 [Rx] Budesonide-Formot 160-4.5 Mcg [Symbicort 160-4.5 Mcg Inhaler] 2 puff INHALATION RT-BID 30 Days #1 each 04/03/23 [Rx] Ibuprofen [Motrin] 400 mg PO TID PRN #30 tab 04/03/23 [Rx] methylPREDNISolone Dose Pack [Medrol Dose Pack] 4 mg PO DIRECTED #21 tab 04/03/23 [Rx] Follow up Appointment(s)/Referral(s): Darleen Holland MD [STAFF PHYSICIAN] - 04/10/23 11:00 am Norman Muñoz DO [Primary Care Provider] - 04/07/23 10:30 am Patient Instructions/Handouts: Upper Respiratory Infection (DC) Activity/Diet/Wound Care/Special Instructions: Activity Limited until follow-up Continue taking medications as prescribed Follow-up with primary care provider on discharge Follow-up pulmonary in 1-2 weeks for further testing Discharge Disposition: HOME SELF-CARE
== END 2023-04-03 12:20 | disposition home or self-care (01) ==
LOC: EC 09:03 → INTOOBSV 15:05 → 4SSUR 15:05 → UNDODISIN 04-03 12:20
PROVIDERS: ADMIT Internal Medicine; ATTEND Internal Medicine
DX: J45.21 Mild intermittent asthma with (acute) exacerbation (principal); F32.A Depression, unspecified; E66.9 Obesity, unspecified; Z68.35 Body mass index [BMI] 35.0-35.9, adult; Z87.891 Personal history of nicotine dependence; Z79.51 Long term (current) use of inhaled steroids; Z79.899 Other long term (current) drug therapy; Z20.822 Contact with and (suspected) exposure to COVID-19
CPT/HCPCS: 96376 ×3; 96361 ×3; 96366; 96367; 96372 ×2; 96365; 96375; 99285; 36415; 94640 ×3; 94760; 93005; 85379; 83880; 80053; 80048; 87449; 83605; 85025 ×2; 87040; 87070; 87205; 84145; 87636; 71046 ×2; G0378 ×2; J1644 ×2; J2930 ×2; J2405; J0456; J0696 ×2; J7509